=== PATIENT | female | born 1965 | race Caucasian/White ===

== ENCOUNTER 2021-09-28 08:34 | Day surgery (SDC) | payer BC ==
[2021-09-28] VITALS (12 sets, daily range): BP systolic 109–177; BP diastolic 61–86; PULSE 58–78; TEMP 98.6
[~2021-09-28] VITALS: Ht 162.7 cm; Wt 103.0 kg
[~2021-09-28 08:34] MED LIST: ASPIRIN E.C. 8181 MG PO; CARAFATE 1GM1 G PO; NATURAL IRON65 MG PO; PROTONIX 40MG T40 MG PO; TOPROL XL 50MG50 MG PO
[2021-09-28] MEDS ORDERED: ZANTAC-360 (FAM20 MG PO (08:48)
[2021-09-28] MEDS ORDERED: ZESTRIL 10MG10 MG PO (08:48)
[2021-09-28 09:12] LABS: HEMATOCRIT 41.2 % (37.0-47.0); HEMOGLOBIN 14.2 g/dl (12.5-16.0); MEAN CELL VOLUME 83 fl (80.0-100.0); MEAN CORPUSCULAR HEMOGLOBIN 29 pg (27-31); MEAN CORPUSCULAR HGB CONC 35 g/dl (33.0-37.0); MEAN PLATELET VOLUME 9.8 fl (7.4-10.4); PLATELET COUNT 204 K/mm3 (130-400); RED BLOOD COUNT 4.96 M/mm3 (4.10-5.30); REDCELL DISTRIBUTION WIDTH-CV 13.2 % (11.5-14.5)
[2021-09-28 09:26] LABS: CALCIUM 8.9 mg/dL (8.4-10.2); CREATININE, serum 0.83 mg/dL (0.57-1.11); POTASSIUM 4.2 mmol/L (3.5-4.5)
[2021-09-28 09:36] LABS: INR 1.1 (0.8-3.0); PROTHROMBIN TIME 12.2 SECONDS (9.7-12.8)
[2021-09-28 09:38] LABS: PARTIAL THROMBOPLASTIN TIME 30.1 SECONDS (26.0-37.0)
--- NOTE | 2021-09-28 11:27 | NUR ---
SEE MERGE FOR ALL MEDICATION ADMINISTRATION TIMES/DOSAGES AND INTRA/POST SEDATION ASSESSMENTS.
--- NOTE | 2021-09-28 12:00 | NUR ---
Drowsy and oriented. Denies pain at this time. Right groin site drsg CD&I, soft to palpation and pedal pulses palpable. VSS. Will monitor
--- NOTE | 2021-09-28 16:30 | NUR ---
INT discontinued intact. Ambulated to bathroom with steady gait and right groin remains CD&I and soft to palpation. Discharge instructions given. Transferred to private car by daniela
== END 2021-09-28 17:18 | disposition home or self-care (01) ==
LOC: COL.CAR 08:34
PROVIDERS: Internal Medicine Cardiovascular Disease
DX: R07.89 Other chest pain (principal); R94.39 Abnormal result of other cardiovascular function study; I47.1 Supraventricular tachycardia; I34.0 Nonrheumatic mitral (valve) insufficiency; I10 Essential (primary) hypertension; I25.10 Atherosclerotic heart disease of native coronary artery without angina pectoris; E78.5 Hyperlipidemia, unspecified; D50.9 Iron deficiency anemia, unspecified; Z79.82 Long term (current) use of aspirin; Z79.899 Other long term (current) drug therapy
CPT/HCPCS: C1760; C1894; J1200; J1644; J2250; J2930; J3010; Q9967